=== PATIENT | female | born 1960 | race Caucasian/White ===

== ENCOUNTER → 2025-03-13 | Outpatient (CLI) | payer BC ==
--- NOTE | 2025-03-13 15:28 | BD ---
EXAMINATION TYPE: Axial Bone Density DATE OF EXAM: 03/13/2025 CLINICAL HISTORY: 64 years old Female. ICD-10 CODE: Z13.820 ENCOUNTER FOR SCREENING FOR OSTEOPOROSIS , Additional History: Height: 64 Weight: 206 FRAX RISK QUESTIONS: History of Fracture in Adulthood: yes Secondary Osteoporosis: RISK FACTORS HISTORY OF: Surgery to Spine/Hip(right/left)/Wrist (right/left): left hip arthroscopy When: 2021 MEDICATIONS: EXAM MEASUREMENTS: Bone mineral densitometry was performed using the [employer]. Bone mineral density as measured about the Lumbar spine is: ----- L1-L4(G/cm2): 1.165 T Score Values are as follows: ----- L1: -0.7 ----- L2: -0.7 ----- L3: 0.4 ----- L4: 0.3 ----- L1-L4: -0.1 Z Score Values are as follows: ----- L1: -0.1 ----- L2: -0.1 ----- L3: 1.0 ----- L4: 0.9 ----- L1-L4: 0.5 First dexa at [facility] Bone mineral density about the R hip (g/cm2): 0.905 Bone mineral density about the L hip (g/cm2): 0.959 T Score values are as follows: -----R Neck: -2.0 -----L Neck: -1.7 -----R Total: -0.8 -----L Total: -0.4 Z Score values are as follows: -----R Neck: -1.2 -----L Neck: -0.9 -----R Total: -0.3 -----L Total: 0.1 First dexa at [facility] FRAX%s: The graph provided illustrates a 16.4% chance for a major osteoporotic fx and a 2.4% chance f or the hips probability for fx in 10 years time. IMPRESSION: Osteopenia (T Score between -2.5 and -1). There is slightly increased risk of fracture and the patient may be considered for treatment. Re-Screen 2-5 years. NOTE: T-SCORE=SD OF THE YOUNG ADULT MEAN. [facility], , 03/13/2025 3:26 PM
== END | disposition home or self-care (01) ==
LOC: RADBDWWP 14:07
PROVIDERS: ATTEND Family Medicine
DX: Z13.820 Encounter for screening for osteoporosis (principal); M85.89 Other specified disorders of bone density and structure, multiple sites
CPT/HCPCS: 77080